=== PATIENT | female | born 1940 | race Caucasian/White ===

== ENCOUNTER 2017-02-03 07:19 | Day surgery (SDC) | payer MEDICARE, BC ==
[~2017-02-03] VITALS: Ht 157.5 cm; Wt 89.8 kg
--- NOTE | ~2017-02-03 | EGD ---
EGD REPORT [facility] [address] [address] NAME: JAYE JAMESON : [birth year] STATUS : REG [facility]#: [id number] AGE: 76 ADM/REG DATE : 02/03/17 MR#: [id number] REPORT SERV DATE: 02/03/17 DICTATED BY: CHUCHO JACKSON DATE: 02/03/17 REPORT STATUS : Draft TRANSCRIBED BY: [employer] DATE: 02/03/17 [facility] Patient Name: Jaye Jameson Date of : 1940 Attending MD: CHUCHO JACKSON MD Procedure Date No Time: 02/03/2017 Procedure: Colonoscopy Indications: Abdominal pain in the right lower quadrant, Rectal bleeding, Constipation Referring MD: CHUCHO WOOD MD Medicines: as per anesthesia Complications: No immediate complications. Procedure: Pre-Anesthesia Assessment: - ASA Grade Assessment: IV - A patient with severe systemic disease that is a constant threat to life. After I obtained informed consent, the scope was passed under direct vision. Throughout the procedure, the patient's blood pressure, pulse, and oxygen saturations were monitored continuously. The [facility] [id number] was introduced through the anus and advanced to the cecum, identified by appendiceal orifice and ileocecal valve. The colonoscopy was somewhat difficult due to multiple diverticula in the colon, restricted mobility of the colon, significant looping and a tortuous colon. The patient tolerated the procedure. The quality of the bowel preparation was fair. Findings: The perianal and digital rectal examinations were normal. Many small and large-mouthed diverticula were found in the sigmoid colon and in the descending colon. Internal hemorrhoids were found during endoscopy and were mild. Impression: - Diverticulosis in the sigmoid colon and in the descending colon. - Internal hemorrhoids. Recommendation: - Continue present medications. Procedure Code(s): --- Professional --- 92743, Colonoscopy, flexible, proximal to splenic flexure; diagnostic, with or without collection of specimen(s) by brushing or washing, with or without colon decompression (separate procedure) EGD REPORT [facility] [address] [place] [address] NAME: JAYE JAMESON : [birth year] STATUS : REG [facility] PAT#: [id number] AGE: 76 ADM/REG DATE : 02/03/17 MR#: [id number] REPORT SERV DATE: 02/03/17 DICTATED BY: CHUCHO JACKSON. DATE: 02/03/17 REPORT STATUS : Draft TRANSCRIBED BY: [employer] DATE: 02/03/17 Diagnosis Code(s): --- Professional --- K64.8, Other hemorrhoids K57.30, Diverticulosis of large intestine without perforation or abscess without bleeding R10.31, Right lower quadrant pain K62.5, Hemorrhage of anus and rectum K59.00, Constipation, unspecified CPT copyright 2013 [employer]. All rights reserved. The codes documented in this report are preliminary and upon shellfish meat separator operator review may be revised to meet current compliance requirements. CHUCHO JACKSON MD 02/03/2017 9:49 AM This report has been signed electronically. Number of Addenda: 0 Note Initiated On: 02/03/2017 8:49 AM Scope Withdrawal Time 0 hours 6 minutes 58 seconds [address] [place] [address]
--- NOTE | ~2017-02-03 | EGD ---
EGD REPORT [facility] [address] [address] NAME: JAYE JAMESON : [birth year] STATUS : REG [facility]#: [id number] AGE: 76 ADM/REG DATE : 02/03/17 MR#: [id number] REPORT SERV DATE: 02/03/17 DICTATED BY: CHUCHO JACKSON DATE: 02/03/17 REPORT STATUS : Draft TRANSCRIBED BY: [employer] DATE: 02/03/17 [facility] Patient Name: Jaye Jameson Date of : 1940 Attending MD: CHUCHO JACKSON MD Procedure Date No Time: 02/03/2017 Procedure: Upper GI endoscopy Indications: Heartburn, Suspected esophageal reflux, Nausea Referring MD: CHUCHO WOOD MD Medicines: as per anesthesia Complications: No immediate complications. Procedure: Pre-Anesthesia Assessment: - ASA Grade Assessment: IV - A patient with severe systemic disease that is a constant threat to life. After obtaining informed consent, the endoscope was passed under direct vision. Throughout the procedure, the patient's blood pressure, pulse, and oxygen saturations were monitored continuously. The [facility] H190 [id number] was introduced through the mouth, and advanced to the third part of duodenum. The upper GI endoscopy was accomplished without difficulty. The patient tolerated the procedure. Findings: The examined esophagus was normal. Localized mild inflammation characterized by erythema was found in the gastric antrum. Biopsies were taken with a cold forceps for histology. The cardia and gastric fundus were normal on retroflexion. The examined duodenum was normal. Impression: - Normal esophagus. - Gastritis. Biopsied. - Normal examined duodenum. Recommendation: - Await pathology results. - Follow an antireflux regimen. - Continue present medications. Procedure Code(s): --- Professional --- 70037, Esophagogastroduodenoscopy, flexible, transoral; with biopsy, single or multiple Diagnosis Code(s): --- Professional --- K29.70, Gastritis, unspecified, without bleeding R12, Heartburn EGD REPORT [facility] [address] [address] NAME: JAYE JAMESON : [birth year] STATUS : REG [facility]#: [id number] AGE: 76 ADM/REG DATE : 02/03/17 MR#: [id number] REPORT SERV DATE: 02/03/17 DICTATED BY: CHUCHO JACKSON. DATE: 02/03/17 REPORT STATUS : Draft TRANSCRIBED BY: [employer] DATE: 02/03/17 R11.0, Nausea CPT copyright 2013 [employer]. All rights reserved. The codes documented in this report are preliminary and upon sinker puller review may be revised to meet current compliance requirements. CHUCHO JACKSON MD 02/03/2017 9:11 AM This report has been signed electronically. Number of Addenda: 0 Note Initiated On: 02/03/2017 8:50 AM Scope Withdrawal Time 0 hours 0 minutes 0 seconds [address] [address]
[~2017-02-03 07:19] MED LIST: ASAB PO; ATEN50 PO; ATENOLOL PO; BETIMOL0.5 % OP; CALTRA600D PO; CARDU4 PO; CARDURA8 MG PO; CENTRUM PO; CYMBALTA60 PO; GLUCCHONDR PO; GLUCOSAMINEPO; GLUCOTROL5 PO; GLUCPH PO; GLUCXL2.5 PO; HYZAAR 100/25 T1 TAB PO; INSTAFLEX PO; IVVIBRA PO; LIPITOR40 PO; MIRALAX POWDER1 PKT PO; MULTIVITAMI1 PO; MYRBETRIQ25 MG PO; NEUR600 PO; NEXIUM20 M1 PO; NEXIUM40 PO; NORV25 PO; NORV5 PO; OCUVITE PO; PROBIOTIC; RESTASIS OPH; SUCR PO; TRIPLE FLEX PO; VOLT75 PO; XALAT OPH; ZOCOR40 PO
== END 2017-02-03 23:59 | disposition home or self-care (01) ==
LOC: DMU 07:19
PROVIDERS: Internal Medicine Gastroenterology
PROC: 0DJD8ZZ Inspection of Lower Intestinal Tract, Via Natural or Artificial Opening Endoscopic (ICD-10-PCS; principal; 2017-02-03 09:00)
PROC: 0DB68ZX Excision of Stomach, Via Natural or Artificial Opening Endoscopic, Diagnostic (ICD-10-PCS; 2017-02-03 09:00)
DX: K29.50 Unspecified chronic gastritis without bleeding (principal); K57.30 Diverticulosis of large intestine without perforation or abscess without bleeding; K64.8 Other hemorrhoids; E11.9 Type 2 diabetes mellitus without complications; M79.7 Fibromyalgia; Z90.49 Acquired absence of other specified parts of digestive tract; Z90.710 Acquired absence of both cervix and uterus; Z88.2 Allergy status to sulfonamides; Z91.09 Other allergy status, other than to drugs and biological substances; Z79.84 Long term (current) use of oral hypoglycemic drugs; Z79.82 Long term (current) use of aspirin; Z79.2 Long term (current) use of antibiotics; Z79.899 Other long term (current) drug therapy
CPT/HCPCS: 82962; 88305